=== PATIENT | male | born 2000 | race Hispanic/Latino ===

== ENCOUNTER → 2019-05-06 | Outpatient (CLI) | payer OTHER ==
[~2019-05-06] MED LIST: DIATRIZOATE MEGL/DIATRIZOA SOD 30 ML BTL PO ONE; IOPAMIDOL 370 MG/ML 200 ML INFUS..BTL INJ ONE; SODIUM CHLORIDE 0.9% 50ML 50 ML ONE
--- NOTE | 2019-05-07 08:51 | Diagnostic Imaging Report ---
CT of the abdomen and pelvis, with contrast, 05/06/2019. History: Persistent urachus with umbilical drainage. Comparison: None available. Technique: Multidetector CT scanning of the abdomen and pelvis was performed from the level of the lung bases to the inferior pubic rami after intravenous and oral administration of contrast. Coronal and sagittal multiplanar reformations were obtained. RADIATION DOSE: Total DLP: 388 mGy*cm Dose modulation, iterative reconstruction, and/or weight based adjustment of the mA/kV was utilized to reduce the radiation dose to as low as reasonably achievable. Discussion: LUNG BASES: No visualized abnormalities. ABDOMEN: The liver, gallbladder, biliary tree, spleen, pancreas, adrenal glands, and kidneys are normal. The hepatic vein, portal vein, and splenic vein are patent. The abdominal aorta is within normal limits for size. The stomach, small bowel, and large bowel are unremarkable. The appendix is visualized and is normal. There is no evidence of adenopathy or free fluid. PELVIS: The bladder, prostate, and seminal vesicles are normal in appearance. There is no visible bladder diverticulum. A 1 to 2 mm diameter linear structure is seen extending from the dome of the bladder superiorly to the umbilicus. There is no evidence of free fluid or adenopathy. BONES AND SOFT TISSUES: No abnormality. IMPRESSION: Very thin linear structure extending from the bladder to the umbilicus may represent a urachal remnant, but there is no evidence of bladder diverticulum, urachal cyst, umbilical sinus, or fluid collection. Otherwise unremarkable CT of the abdomen and pelvis. Signed by: Justin Esquivel on 05/07/2019 8:47 AM
== END ==
LOC: CT 16:31
PROVIDERS: ATTEND Surgery
DX: Q64.4 Malformation of urachus (principal)
CPT/HCPCS: 74177; Q9967

== ENCOUNTER 2019-07-29 07:37 | Inpatient (IN) | payer OTHER ==
[2019-07-21 15:38] LABS: BASOPHILS % 0.4 % (0.0-1.0); EOSINOPHILS % 0.2 % (0.0-6.0); HEMATOCRIT 50.5 % (38.2-49.6); HEMOGLOBIN 17.1 g/dL (14.0-18.0); LYMPHOCYTES # (AUTO) 1.6 (1.0-3.2); LYMPHOCYTES % 31.2 % (18.0-39.1); MEAN CORPUSCULAR HEMOGLOBIN 27.9 pg (28-32); MEAN CORPUSCULAR HGB CONC 33.9 g/dL (31-35); MEAN CORPUSCULAR VOLUME 82.5 fL (81-99); MONOCYTES # (AUTO) 0.4 (0.2-0.8); NEUTROPHILS # (AUTO) 3.1 (2.1-6.9); PLATELET COUNT 211 x10e3/uL (140-360); RED BLOOD COUNT 6.12 x10e6/uL (4.3-5.7); RED CELL DISTRIBUTION WIDTH 13.2 % (11.7-14.4)
[2019-07-21 15:59] LABS: ANION GAP 17.1 mmol/L (8-16); BLOOD UREA NITROGEN 11 mg/dL (7-26); BUN/CREATININE RATIO 12 (6-25); CALCIUM 10.1 mg/dL (8.4-10.2); CARBON DIOXIDE 22 mmol/L (22-29); CHLORIDE 103 mmol/L (98-107); CREATININE, SERUM 0.94 mg/dL (0.72-1.25); EST GLOMERULAR FILTRATION RATE > 60 ML/MIN (60-); GLUCOSE 86 mg/dL (74-118); POTASSIUM 4.1 mmol/L (3.5-5.1); SODIUM 138 mmol/L (136-145)
[~2019-07-29] VITALS: Ht 165.1 cm; Wt 84.4 kg
[2019-07-29] MEDS ORDERED: LIDOCAINE 1% W/EPINEPHRINE 20 ML VIAL ONE (10:46)
[2019-07-29] MEDS ORDERED: BUPIVACAINE 0.25% 30ML SDV INJ ONE (10:46)
[2019-07-29] MEDS: DEXTROSE 5%/LACTATED RINGERS 1,000 ML IV SCH (13:31)
[2019-07-29] MEDS ORDERED: MEPERIDINE HCL INJ 25 MG/ML VIAL ONE (13:33)
[2019-07-29] MEDS ORDERED: HYDROMORPHONE 0.2MG/ML-SOD CHL 30ML PCA SYRINGE IV PRN (13:45)
[2019-07-29] MEDS ORDERED: ONDANSETRON HCL INJ 2MG/ML 2ML 2 MG/ML VIAL IV PRN (13:45)
[2019-07-29] MEDS ORDERED: NALOXONE HCL INJ 0.4 MG/ML AMP IV PRN (13:45)
[2019-07-29] MEDS ORDERED: CEFAZOLIN SOD 1 GM/NS 50ML 50 ML IV SCH ×2 (14:00→20:30)
[2019-07-29] MEDS ORDERED: ROCURONIUM BROMIDE 10 MG/ML 5ML VIAL ONE (14:01)
[2019-07-29] MEDS ORDERED: PROPOFOL IV EMULSION 10 MG/ML 20 ML VIAL ONE (14:01)
[2019-07-29] MEDS ORDERED: DEXAMETHASONE SOD PHOS INJ 4 MG/ML VIAL ONE (14:01)
[2019-07-29] MEDS ORDERED: LIDOCAINE HCL 2% LOCAL INJ 5 ML SDV VIAL INJ ONE (14:01)
[2019-07-29] MEDS ORDERED: ONDANSETRON HCL INJ 2MG/ML 2ML 2 MG/ML VIAL ONE (14:01)
[2019-07-29] MEDS ORDERED: SEVOFLURANE INHAL SOLN 250 ML PEN BTL ONE (14:01)
[2019-07-29] MEDS ORDERED: ACETAMINOPHEN 1000 MG/100 ML IV ONE (14:01)
[2019-07-29] MEDS ORDERED: FENTANYL CITRATE/PF 100MCG/2 ML INJ ONE (19:21)
[2019-07-29] MEDS ORDERED: MIDAZOLAM HCL 2 MG/2 ML VIAL ONE (19:21)
[2019-07-29] MEDS ORDERED: PANTOPRAZOLE 40 MG 10ML VIAL ONE (20:26)
[2019-07-29] MEDS ORDERED: PANTOPRAZOLE 40 MG 10ML VIAL IV SCH (20:30)
--- NOTE | 2019-07-29 21:00 | NUR ---
RECEIVED PATIENT PER STRETCHER FROM PACU, PATIENT AAOX3, FAMILY IS PRESENT. POSITIONED IN BED, ASSESSMENT DONE, SENIOR STORAGE ADMINISTRATOR REMAIN INTACT DRESSING REMAIN INTACT TO ABDOMEN. WILL CONTINUE TO MONITOR. CALL LIGHT REMAIN IN REACH.
--- NOTE | 2019-07-29 21:23 | Operative Report ---
DATE OF PROCEDURE: 07/29/2019 SURGEON: Oleksandr June MD PREOPERATIVE DIAGNOSIS: Patent urachal cyst with umbilical fistula. POSTOPERATIVE DIAGNOSIS: Patent urachal cyst with umbilical fistula. OPERATION PERFORMED: Resection of patent urachal cyst with umbilical fistula. ASSISTANTS: Dr. Harsh June and ROSENDO Linares. ANESTHESIA: General. COMPLICATIONS: None. ESTIMATED BLOOD LOSS: Minimal. PROCEDURE IN DETAIL: With the patient lying in bed in the supine position under good general anesthesia, the abdomen was prepped with Betadine solution and draped in the usual manner. A lower midline incision was made and was carried down through the subcutaneous tissue down to the midline fascia. The midline fascia was then opened and the preperitoneal space was entered. Exploration of the preperitoneal space revealed the patent urachal fistulous tract. This was then dissected proximally all the way to the base of the umbilicus. The umbilicus was then from the midline fascia and the base of the umbilicus, which was opened from the fistula was resected. The fistula tract was then dissected distally from the umbilicus and followed all the way down to the bladder, at which point he was resected and ligated with 2-0 silk tie. The specimen was sent for pathological examination. The whole area was then thoroughly irrigated. Perfect hemostasis was ascertained. The umbilicus was then repaired with interrupted sutures of 3-0 Vicryl. The fascia was then closed with a running suture of #1 PDS. The umbilicus tacked back down to the midline fascia with 3-0 Vicryl. The subcutaneous tissue was approximated with 2-0 chromic and the skin was closed with clips. A dressing was applied. The sponge, lap, and needle count was correct. The patient tolerated the procedure well and returned to the recovery room in stable condition. Oleksandr June MD JLR/MODL /[id number]
[2019-07-29 23:31] VITALS: BP 120/69
[2019-07-29 23:37] VITALS: BP 131/66
[2019-07-30] VITALS (8 sets, daily range): BP systolic 118–133; BP diastolic 57–73
--- NOTE | 2019-07-30 | NUR ---
PATIENT REMAIN AWAKE, UNABLE TO SLEEP, NO DISTRESS NOTED, CALL LIGHT REMAIN IN REACH. WORKDAY MANAGER IN USE. WILL CONTINUE TO MONITOR.
[2019-07-30] MEDS: DEXTROSE 5%/LACTATED RINGERS 1,000 ML IV SCH ×4 (01:23→21:06)
--- NOTE | 2019-07-30 04:00 | NUR ---
CONTINUE RESTING, FAMILY REMAIN PRESENT, WILL CONTINUE TO MONITOR.
[2019-07-30] MEDS ORDERED: CEFAZOLIN SOD 1 GM/NS 50ML 50 ML IV SCH (04:30)
--- NOTE | 2019-07-30 05:35 | NUR ---
PATIENT HAS VOIDED TWICE THIS SHIFT.
[2019-07-30 06:14] LABS: BASOPHILS % 0.1 % (0.0-1.0); HEMATOCRIT 44.1 % (38.2-49.6); HEMOGLOBIN 14.9 g/dL (14.0-18.0); LYMPHOCYTES % 10.1 % (18.0-39.1); MEAN CORPUSCULAR HEMOGLOBIN 27.8 pg (28-32); MEAN CORPUSCULAR HGB CONC 33.8 g/dL (31-35); MEAN CORPUSCULAR VOLUME 82.3 fL (81-99); MONOCYTES % 10.3 % (4.4-11.3); NEUTROPHILS # (AUTO) 7.9 (2.1-6.9); NEUTROPHILS % 79.2 % (38.7-80.0); PLATELET COUNT 209 x10e3/uL (140-360); RED BLOOD COUNT 5.36 x10e6/uL (4.3-5.7); RED CELL DISTRIBUTION WIDTH 13.3 % (11.7-14.4)
[2019-07-30 06:31] LABS: BLOOD UREA NITROGEN 7 mg/dL (7-26); BUN/CREATININE RATIO 8 (6-25); CALCIUM 9.2 mg/dL (8.4-10.2); CARBON DIOXIDE 25 mmol/L (22-29); CHLORIDE 103 mmol/L (98-107); EST GLOMERULAR FILTRATION RATE > 60 ML/MIN (60-); GLUCOSE 130 mg/dL (74-118); SODIUM 139 mmol/L (136-145)
--- NOTE | 2019-07-30 07:00 | NUR ---
RECEIVED PATIENT RESTING IN BED NO S/S OF DISTRESS. BED LOW, WHEELS LOCKED, SIDE RAILS X2, CALL LIGHT IN REACH WILL CONTINUE TO MONITOR PATIENT.
--- NOTE | 2019-07-30 07:19 | NUR ---
PATIENT RESTING IN BED, FAMILY REMAIN AT HIS BEDSIDE. REPORT GIVEN TO AM NURSE. PIT FURNACE OPERATOR REMAIN IN USE. CALL LIGHT IN REACH. WILL CONTINUE TO MONITOR.
--- NOTE | 2019-07-30 11:30 | NUR ---
AMBULATED WITH PATIENT IN HALLWAY, STEADY GAIT. PATIENT BACK IN BED. CALL LIGHT WITHIN REACH WILL CONTINUE TO MONITOR PATIENT.
--- OUTSIDE RECORDS SUMMARY | 2019-07-30 14:05 | XMS REPORT ---
Author Author [facility] Address Unknown Phone Unavailable Care Team Providers [employer] Floorperson Name Role Phone CHAYA DENIS Unavailable Unavailable Problems This patient has no known problems. Allergies, Adverse Reactions, Alerts This patient has no known allergies or adverse reactions. Medications This patient has no known medications. Results Test Description Test Time Test Comments Text Results Atomic Results Result Comments CT ABDOMEN/PELVIS W 2019-05-07 08:32:00 [place] [id number] Patient Name: BELÉN RODNEY MR #: [id number] : 2000 Age/Sex: 19/M Req #: [id number] Adm Physician: Ordered by: CHAYA DENIS MD Report #: [id number] Location: CT Room/Bed: Procedure: [id number] CT/CT ABDOMEN/PELVIS W Exam Date: 05/06/19 Exam Time: 1815 REPORT STATUS: Signed CT of the abdomen and pelvis, with contrast, 05/06. History: Persistent urachus with umbilical drainage. Comparison: None available. Technique: Multidetector CT scanning of the abdomen and pelvis was performed from the level of the lung bases to the inferior pubic rami after intravenous and oral administration of contrast. Coronal and sagittal multiplanar reformations were obtained. RADIATION DOSE: Total DLP: 388 mGy*cm Dose modulation, iterative reconstruction, and/or weight based adjustment of the mA/kV was utilized to reduce the radiation dose to as low as reasonably achievable. D iscussion: LUNG BASES: No visualized abnormalities. ABDOMEN: The liver, gallbladder, biliary tree, spleen, pancreas, adrenal glands, and kidneys are normal. The hepatic vein, portal vein, and splenic vein are patent. The abdominal aorta is within normal limits for size. The stomach, small bowel, and large bowel are unremarkable. The appendix is visualized and is normal. There is no evidence of adenopathy or free fluid. PELVIS: The bladder, prostate, and seminal vesicles are normal in appearance. There is no visible bladder diverticulum. A 1 to 2 mm diameter linear structure is seen extending from the dome of the bladder superiorly to the umbilicus. There is no evidence of free fluid or adenopathy. BONES AND SOFT TISSUES: No abnormality. IMPRESSION: Very thin linear structure extending from the bladder to the umbilicus may represent a urachal remnant, but there is no evidence of bladder diverticulum, urachal cyst, umbilical sinus, or fluid collection. Otherwise unremarkable CT of the abdomen and pelvis. Signed by: Torri Esquivel on 05/07/2019 8:47 AM Dictated By: TORRI ESQUIVEL MD 6 Transcribed By: LEVI on 05/07/19846 COPY TO: CHAYA DENIS MD
--- NOTE | 2019-07-30 19:14 | NUR ---
WALKING ROUNDS PERFORMED, RECEIVED PT LAYING SEMI FOWLERS IN BED, AAX3, RR EVEN AND NON-LABORED, ROOM AIR. DRESSING TO ANTERIOR ABD NOTED TO BE CDI WITH ABDOMINAL BINDER IN PLACE. SUPERMARKET MANAGER BUTTON WITHIN REACH. LEFT PT LAYING SEMI FOWLERS IN BED, BED IN LOW LOCKED POSITION, SIDE RAIL UPX2, CALL LIGHT AND PHONE WITHIN REACH. FAMILY AT BEDSIDE.
[2019-07-30] MEDS ORDERED: ONDANSETRON HCL 4 MG ORAL DISINTEGRATING TAB PO PRN (20:00)
[2019-07-30] MEDS ORDERED: PANTOPRAZOLE SOD 40 MG TABEC PO SCH (21:00)
[2019-07-30] MEDS: HYDROCODONE/APAP 7.5MG-325MG 1 EA TAB PO PRN (21:06)
[2019-07-31] VITALS: BP 115/57
[2019-07-31 04:00] VITALS: BP 113/56
[2019-07-31] MEDS: HYDROCODONE/APAP 7.5MG-325MG 1 EA TAB PO PRN ×2 (06:30→10:40)
[2019-07-31 07:51] VITALS: BP 113/56
[2019-07-31 08:08] VITALS: BP 130/74
[2019-07-31 08:47] VITALS: BP 130/74
[2019-07-31] MEDS: DEXTROSE 5%/LACTATED RINGERS 1,000 ML IV SCH (09:56)
[2019-07-31 12:13] VITALS: BP 118/68
--- NOTE | 2019-07-31 12:25 | NUR ---
IV DC'D AT THIS TIME WITHOUT COMPLICATION. PATIENT EDUCATED ON DISCHARGE INSTRUCTIONS AND FOLLOW UP APPOINTMENT. PRESCRIPTIONS GIVEN TO PATIENT. COPIES MADE FOR CHART. PATIENT INSTRUCTED TO CALL WHEN DRESSED AND WHEELCHAIR WILL BE USED TO TAKE PATIENT TO FRONT. PATIENTS PARENTS PRESENT TO TAKE PT HOME.
--- NOTE | 2019-07-31 12:45 | NUR ---
PATIENT LEAVING UNIT AT THIS TIME WITH PRIMARY RN VIA WHEELCHAIR. PARENTS TO DRIVE PATIENT HOME. DISCHARGE PACKET WITH PATIENT.
== END 2019-07-31 12:45 | disposition home or self-care (01) | DRG 989 ==
LOC: OR 07:37 → PACU V 13:35 → MED/SURG 21:08
PROVIDERS: ADMIT Surgery; ATTEND Surgery
PROC: 0WBF0ZZ Excision of Abdominal Wall, Open Approach (ICD-10-PCS; principal; 2019-07-29 11:07)
DX: Q64.4 Malformation of urachus (principal); Z87.891 Personal history of nicotine dependence
CPT/HCPCS: 36415; 80048; 85025; 88304; J0690; J1100; J2001; J2175; J2250; J2405; J3010

== ENCOUNTER 2022-07-02 17:26 | Emergency (ER) | payer SELFPAY ==
[~2022-07-02] VITALS: Ht 165.1 cm; Wt 84.4 kg
[2022-07-02] MEDS ORDERED: FLUORESCEIN SOD(OPTH) 1 MG STRP OP ONE (18:00)
[2022-07-02] MEDS ORDERED: TETRACAINE HCL 0.5% OPTH SOLN 4 ML BTL OP ONE (18:00)
[2022-07-02] MEDS ORDERED: TETANUS/DIPHTHERIA TOX ADULT 0.5 ML SYR IM ONE (18:15)
[2022-07-02] MEDS ORDERED: ERYGEL 2% GEL60 GM OP (18:33)
[2022-07-02 18:47] VITALS: BP 129/80
== END 2022-07-02 18:49 | disposition home or self-care (01) ==
LOC: ER 17:29
DX: H57.12 Ocular pain, left eye (principal); T15.82XA Foreign body in other and multiple parts of external eye, left eye, initial encounter; K21.9 Gastro-esophageal reflux disease without esophagitis
CPT/HCPCS: 90714; 99283